=== PATIENT | female | born 1950 | race Caucasian/White ===

== ENCOUNTER 2017-08-14 11:41 | Emergency (ER) | payer MEDICARE, BC ==
--- NOTE | 2017-08-14 12:05 | Emergency Department Record ---
History of Present Illness - General Chief complaint: Female Urogenital Problem Stated complaint: "PERSONAL PROBLEM" Time Seen by Provider: 08/14/17 11:56 Source: Patient Mode of Arrival: Ambulatory Limitations: No limitations - History of Present Illness Initial comments: 67 yo female presents with a day of urinary frequency, urgency, and discomfort. The onset was last night. No fevers. She had to bear down to urinate. She did note a small dime size area of blood with wiping. She has uterine prolapse. She uses a pessarry for support. She is supposed to use Premarin cream for vaginal health but states she is not compliant as she should be. No flank pain. 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 No history of renal stones. MD Complaint: Dysuria, Pelvic pain Onset/Timin -: Days(s) Location: Perineum, Suprapubic Radiation: Non-radiating Severity: Mild Quality: Aching Consistency: Intermittent Improves with: None Worsens with: None Associated Symptoms: Denies other symptoms - Related Data Home Medications Medication Instructions Recorded Confirmed Last Taken Dicyclomine HCl [Bentyl] 10 mg PO Q8H 08/14/17 08/14/17 Unknown Allergies Allergy/AdvReac Type Severity Reaction Status Date / Time amoxicillin trihydrate Allergy HIVES Verified 07/08/15 10:44 [From Augmentin] cephalexin monohydrate Allergy HIVES Verified 07/08/15 10:44 [From Keflex] meperidine HCl [From Demerol] Allergy HIVES Verified 07/08/15 10:44 potassium clavulanate Allergy HIVES Verified 07/08/15 10:44 [From Augmentin] Sulfa (Sulfonamide Allergy HIVES Verified 07/08/15 10:44 Antibiotics) tetracycline Allergy HIVES Verified 07/08/15 10:44 Travel Screening - Travel/Exposure Within Last 30 Days Have you traveled within the last 30 days?: No Review of Systems Constitutional: Denies: Chills, Fever, Malaise, Weakness Eyes: Denies: Eye discharge ENT: Denies: Congestion, Throat pain Respiratory: Denies: Cough Cardiovascular: Denies: Chest pain, Syncope Endocrine: Denies: Fatigue Gastrointestinal: Denies: Abdominal pain, Diarrhea, Nausea, Vomiting Genitourinary: Reports: Dysuria, Frequency, Hematuria, Retention, Urgency Musculoskeletal: Denies: Arthralgia, Back pain, Myalgia, Neck pain Skin: Denies: Bruising, Change in color Neurological: Denies: Confusion, Headache Psychiatric: Denies: Anxiety Hematological/Lymphatic: Denies: Easy bleeding, Easy bruising Past Medical History - SOCIAL HISTORY Smoking Status: Light tobacco smoker (<10/day) - RESPIRATORY Hx Respiratory Disorders: No - CARDIOVASCULAR Hx Cardio Disorders: Yes Comment:: water retention - NEURO Hx Neuro Disorders: No - GI Hx GI Disorders: Yes Hx Reflux: Yes - Hx Genitourinary Disorders: No - ENDOCRINE Hx Endocrine Disorders: No - MUSCULOSKELETAL Hx Musculoskeletal Disorders: Yes Hx Arthritis: Yes - PSYCH Hx Psych Problems: Yes Hx Anxiety: Yes Hx Depression: Yes - HEMATOLOGY/ONCOLOGY Hx Hematology/Oncology Disorders: No Family Medical History Any Significant Family History?: Yes Hx Cancer: Father, Mother Physical Exam - General General Appearance: Alert, Oriented x3, Cooperative, No acute distress Limitations: No limitations - Head Head exam: Normal inspection - Eye Eye exam: Normal appearance. negative: Conjunctival injection - ENT ENT exam: Normal exam Ear exam: Normal external inspection Nasal Exam: Normal inspection Mouth exam: Normal external inspection - Neck Neck exam: Normal inspection - Respiratory Respiratory exam: Normal lung sounds bilaterally. negative: Respiratory distress - Cardiovascular Cardiovascular Exam: Regular rate, Normal rhythm, Normal heart sounds - GI/Abdominal GI/Abdominal exam: Soft, Normal bowel sounds, Tenderness (minimal). negative: Diminished bowel sounds, Distended, Guarding, Rebound, Rigid - Rectal Rectal exam: Deferred - exam: Abnormal external exam, Vaginal erythema (thin walled vagina with superficial erythema may be an abrasion). negative: Adnexal mass (L), Adnexal mass (R), Adnexal tenderness (L), Adnexal tenderness (R), Cervical discharge, cervical motion tenderness, Normal bimanual exam, Normal external exam, Normal speculum exam, Vaginal bleeding, Vaginal discharge - Extremities Extremities exam: Normal inspection - Back Back exam: Denies: CVA tenderness (R), CVA tenderness (L) - Neurological Neurological exam: Alert, Oriented X3 - Psychiatric Psychiatric exam: Normal affect, Normal mood - Skin Skin exam: Dry, Intact, Normal color, Warm Course Vital Signs 08/14/17 11:46 Temperature 98.7 F Pulse Rate 93 H Respiratory 20 Rate Blood Pressure 190/105 Pulse Ox 99 - Reevaluation(s) Reevaluation #1: 08/14/17 13:02 The CBC and CMP were reviewed No acute changes The UA is LE positive, trace blood Wet prep is negative Medical Decision Making - Lab Data Result diagrams: 08/14/17 12:15 08/14/17 12:15 Disposition Disposition: Discharge Clinical Impression: Dysuria Disposition: Home, Self-Care Condition: (1) Good Instructions: Dysuria (ED) Additional Instructions: Call [facility] for a follow up Gynecology appointment this week Restart your Premarin at the recommended dosing Recheck a urine this week with your doctor to ensure no blood Forms: Patient Portal Access Time of Disposition: 13:07 Quality - Quality Measures Quality Measures: N/A - Blood Pressure Screening Does Patient Have Any of the Following: Active Dx of HTN Blood Pressure Classification: Hypertensive Reading Systolic Measurement: 190 Diastolic Measurement: 105 Screening for High Blood Pressure: Patient Exclusion, Hx of HTN [[id number]]
[2017-08-14 12:44] LABS: BASO % 0.6 % (0-6); EOS % 1.6 % (0-6); GRAN % 66.5 % (47-80); HEMATOCRIT 41.1 % (35.0-47.0); HEMOGLOBIN 14.5 gm/dl (11.6-16.0); LYMPH % 26.5 % (16-45); MEAN CORPUSCULAR HGB CONC 35.3 g/dl (32-36); MEAN PLATELET VOLUME 11.3 fl (7.4-10.4); MONO % 4.8 % (0-9); PLATELET COUNT 187 K/uL (130-400); RED BLOOD COUNT 4.67 M/uL (3.80-5.40); RED CELL DISTRIBUTION WIDTH 12.4 % (11.5-14.5); WHITE BLOOD COUNT W/O DIFF 7.9 K/uL (4.2-12.2)
[2017-08-14 12:54] LABS: BLOOD UREA NITROGEN 15 mg/dL (8-23); CREATININE 0.6 mg/dL (0.5-0.9); EST GLOMERULAR FILTRATION RATE > 60 mL/min
[2017-08-14 12:57] LABS: GLUCOSE,RANDOM 91 mg/dL (74-109)
[2017-08-14 12:58] LABS: URINE APPEARANCE CLEAR; URINE BILIRUBIN NEGATIVE (NEGATIVE); URINE BLOOD SMALL (NEGATIVE); URINE COLOR YELLOW; URINE GLUCOSE (UA) NEGATIVE (NEGATIVE); URINE KETONE NEGATIVE (NEGATIVE); URINE LEUKOCYTE ESTERASE TRACE (NEGATIVE); URINE NITRITE NEGATIVE (NEGATIVE); URINE PROTEIN NEGATIVE (NEGATIVE); URINE UROBILINOGEN 0.2 E.U./dL (0.20 - 1.00)
[2017-08-14 13:06] LABS: URINE RBC 0 - 2 (NONE SEEN); URINE SQUAMOUS EPITHELIAL CELL 0 - 2 /hpf; URINE WBC 0 - 2 (0-2/hpf)
[2017-08-17 12:19] LABS: GC SPECIMEN TYPE Vaginal
== END 2017-08-14 13:17 | disposition home or self-care (01) ==
LOC: ER 11:41
DX: R30.0 Dysuria (principal); R10.2 Pelvic and perineal pain; R31.0 Gross hematuria; F17.210 Nicotine dependence, cigarettes, uncomplicated
CPT/HCPCS: 80048; 81001; 85025; 87210; 99284